=== PATIENT | female | born 1995 | race Caucasian/White ===

== ENCOUNTER 2016-12-22 00:26 | Emergency (ER) | payer MEDICAID ==
[~2016-12-22] VITALS: Ht 165.1 cm; Wt 77.0 kg
[2016-12-22] MEDS ORDERED: KETOROLAC 60MG/2ML VIAL IM ONE (01:30)
[2016-12-22] MEDS ORDERED: PENICILLIN G BENZATHINE 1,200,000 UNITS/2ML SYR IM ONE (01:30)
[2016-12-22] MEDS ORDERED: DEXAMETHASONE 10 MG/ML VIAL IM ONE (01:30)
[2016-12-22] MEDS ORDERED: ONDANSETRON 4MG ODT PO ONE (02:00)
[2016-12-22 02:03] VITALS: BP 122/81
[2016-12-22 02:13] LABS: HCG SCREEN NEGATIVE
== END 2016-12-22 02:17 | disposition home or self-care (01) ==
LOC: ER 00:27
DX: J02.0 Streptococcal pharyngitis (principal); F17.210 Nicotine dependence, cigarettes, uncomplicated
CPT/HCPCS: 81025; 84703; 87430; 96372; 99284; J0561; J1100; J1885; Q0162; Z7610

== ENCOUNTER 2017-12-12 18:27 | Emergency (ER) | payer MEDICAID ==
[~2017-12-12] VITALS: Ht 165.1 cm; Wt 77.2 kg
[2017-12-12] MEDS ORDERED: KETOROLAC 60MG/2ML VIAL IM ONE (20:00)
[2017-12-12 20:14] VITALS: BP 138/88
[2017-12-12 20:21] LABS: CLARITY URINE CLOUDY (CLEAR); COLOR URINE YELLOW (YELLOW); KETONES URINE 3+ (NEGATIVE); LEUKOCYTE ESTERASE URINE NEGATIVE (NEGATIVE); NITRITE URINE NEGATIVE (NEGATIVE); OCCULT BLOOD URINE NEGATIVE (NEGATIVE); PROTEIN URINE NEGATIVE (NEGATIVE); SPECIFIC GRAVITY URINE 1.021 (1.005-1.030)
== END 2017-12-12 21:50 | disposition left against medical advice (07) ==
LOC: ER 18:27
DX: R10.30 Lower abdominal pain, unspecified (principal); K59.00 Constipation, unspecified
CPT/HCPCS: 81003; 81025; 96372; 99283; J1885